=== PATIENT | female | born 1990 | race Caucasian/White ===

== ENCOUNTER 2018-12-11 19:56 | Emergency (ER) | payer OTHER ==
[~2018-12-11] VITALS: Ht 157.5 cm; Wt 102.1 kg
[2018-12-11] MEDS ORDERED: NABUMETONE 750750 M1 PO (21:16)
[2018-12-11 21:49] VITALS: BP 123/85
== END 2018-12-11 21:49 | disposition home or self-care (01) ==
LOC: M.ERS 19:56
DX: S93.491A Sprain of other ligament of right ankle, initial encounter (principal); W18.39XA Other fall on same level, initial encounter; Y92.094 Garage of other non-institutional residence as the place of occurrence of the external cause; Y93.89 Activity, other specified; Y99.8 Other external cause status